=== PATIENT | male | born 1950 | race Caucasian/White ===

== ENCOUNTER 2025-07-26 08:04 | Outpatient (AMB) | payer OTHER, SELFPAY ==
--- NOTE | 2025-07-26 08:14 | MHC.OFFVIS ---
Vital Signs 07/26/25 08:16 Height 5 ft 9 in Weight 158 lb 2 oz BMI 23.3 BP 130/72 Blood Pressure Location Rt brachial Position Sitting Pulse 68 Pulse Source Pulse Oximeter Pulse Oximetry (%) 98 Oxygen Delivery Method Room Air Intake Visit Reasons: ENP - Tremors Intake Note: Tremors Early Childhood Aide Classroom Required: No Accompanied by: Self / Same As Patient Allergies No Known Allergies Allergy (Verified 07/26/25 08:14) Medication List - Last Reconciled 07/26/25 by Radha Reynolds MD acetaminophen 500 mg PO Q6H PRN carbidopa-levodopa 25-100 mg (Sinemet) 1 tab PO QID docusate sodium (Colace) 100 mg PO BID ibuprofen 600 mg PO TID lorazepam 2 mg (2 x 1 mg) PO BEDTIME 30 days rasagiline (Azilect) 1 mg PO DAILY HPI Comments Details: 75y/o Right handed male comes for further management of Parkinsons disease. ABout 5 years ago he started noticing tremors in his right hand which progressively worsened. He also developed shoulder stiffness on the right and had surgery . He was diagnosed by in 2020 . He is on carbidopa/levodopa 25/100 4-5 times a day Rasagiline 1mg qd and Carbidopa/levodopa ER 50/200 bid ( does not take it regularly ) , lorazepam he is doing good . He exercises regularly. Memory-good SLeep-OK, mild RBD , has vivid dreams Mood- anxiety, mild Motivated SPeech- mild low volume ,mild drooling Hand writing - smaller Using utensils- slower Personal hygiene- slower SHower- good Gait-good No falls Bowel movements- constipated Bladder- normal , stewart sh/o prostrate ca and has some leaking No hallucinations Head injury- industrial accident -2002, lost consiousness briefly Exposure to chemicals - got involved in a felony for cannabis conspiracy , went to a [facility] 2007 and 2008 and was working in a farm spraying chemicals. He is involved in a class action . [facility] Medical History (Updated 07/26/25 @ 08:51 by Radha Reynolds MD) Parkinson's disease without dyskinesia Tremor Elevated PSA Hydronephrosis Nephrolithiasis Hyperlipidemia Depression Anxiety Social History Patient Tobacco Use Status: Never used Tobacco Physical Exam Vital Signs: Last Vital Signs Pulse 68 07/26/25 08:16 BP 130/72 07/26/25 08:16 Pulse Ox 98 07/26/25 08:16 Oxygen Delivery Method Room Air 07/26/25 08:16 BMI result Body Mass Index 23.3 Const General: cooperative, healthy appearing and no acute distress Nutritional Appearance: average body habitus Orientation/consciousness: patient oriented x3 HEENT Head: Yes normal to inspection Neck Other: mild antecollis and restricted range of motion Neuro Other: Mild decreased blink and facial expression mild lower lip tremors, tongue tremors , slow tongue movements Voice- normal Right UE low amplitude rest tremors FineFinger movements - mildlydecreased yaya l>R Alternating hand movements - decreased yaya Hand movements - decreased yaya Foot taps- decreased yaya 1+ cog wheel rigidity R>L gait - mild stooped, mild slowness and decreased arm swing R>L General: patient oriented x3 and no focal motor deficits Cranial nerves: Yes CN's II-XII intact bilaterally, Yes Bilaterally intact EOM present, Yes Normal facial strength present and Yes Midline tongue present Cognition (Neuro): normal cognition Motor exam (neuro): 5/5 motor strength present throughout Deep tendon reflexes (DTR's): Right triceps reflex intensity grade: 1+, Left triceps reflex intensity grade: 1+, Rt Biceps (C5, C6): 1+, Left biceps reflex intensity grade: 1+, Right brachioradialis reflex intensity grade: 1+, Left brachioradialis reflex intensity grade: 1+, Right patellar reflex intensity grade: 1+ and Left patellar reflex intensity grade: 1+ Coordination: harzaf-gh-wokd test normal Assessment & Plan Assessment & Plan (1) Parkinson's disease without dyskinesia: Code(s): G20.A1 - Parkinson's disease without dyskinesia, without mention of fluctuations Category: Medical Qualifiers: Fluctuating manifestations: without fluctuating manifestations Qualified Code(s): G20.A1 - Parkinson's disease without dyskinesia, without mention of fluctuations Plan Continue sinemet 25/100 1 tab 5 times a day MRI brain Rasagiline 1mg qd PWR PT Hold sinemet Cr for now Orders: Orders MR head/brain wo con Today G20.A1 - Parkinson's disease without dyskinesia, without mention of fluctuations PWR Program Eval and Treat Today G20.A1 - Parkinson's disease without dyskinesia, without mention of fluctuations Medications: New carbidopa-levodopa 25-100 mg (Sinemet) 1 tab PO .5 times a day 150 tabs 6RF rasagiline (Azilect) 1 mg PO DAILY 30 tabs 6RF Changed From lorazepam 1.5 mg (1.5 x 1 mg) PO BEDTIME 30 days 45 tabs 2RF To lorazepam 2 mg (2 x 1 mg) PO BEDTIME 60 tabs 2RF 30 days Coding Level of Care Code New Pt Level 4 (35562) Complex EM visit Add On G2211 Diagnoses Parkinson's disease without dyskinesia or fluctuating manifestations G20.A1 Fluctuating manifestations: without fluctuating manifestations
[2025-07-26 08:16] VITALS: BP 130/72; PULSE 68; O2SAT 98; BMI 23.3
--- OUTSIDE RECORDS SUMMARY | 2025-07-26 08:18 | XMS_ITS ---
Author Name [facility] Organization Unknown Care Team Organization Name Specialty Phone Email Start Date End [place] VIRAJ CONNORS Primary Care 09/29/2022 07/10/20 24
== END 2025-07-26 09:03 | disposition home or self-care (01) ==
PROVIDERS: PCP Internal Medicine; Visit Provider Psychiatry & Neurology Neurology
DX: G20.A1 Parkinson's disease without dyskinesia, without mention of fluctuations (principal)
CPT/HCPCS: 99204; G2211

== ENCOUNTER 2025-08-10 07:22 | Outpatient (REF) | payer MEDICARE, SELFPAY ==
--- NOTE | ~2025-08-10 | MR_ITS ---
EXAMINATION: MR BRAIN WITHOUT CONTRAST CLINICAL INFORMATION: Parkinson's disease without dyskinesia. Patient states episodic dizziness and decreased vision. COMPARISON: None available. TECHNIQUE: MRI of the brain was obtained using routine sequences without contrast. Examination performed on 1.5 [employer] Siemens high-field unit. FINDINGS: There is no diffusion restriction. There is no intracranial hemorrhage, acute infarction, mass effect, or edema. Ventricles, sulci, and cisterns are normal in size and configuration for patient age. No abnormal patterns of atrophy. No shift of midline. There is a solitary focus of punctate hemosiderin deposition in the left high frontal white matter. This is nonspecific and may represent sequela of a prior microhemorrhage or a tiny cavernous malformation. No additional abnormal foci of hemosiderin deposition present. There are no significant white matter signal abnormalities identified. Midline structures appear normally formed. The pituitary gland appears normal. Posterior fossa structures appear normal. Cerebellar tonsils are appropriately located. Major flow voids are preserved within the skull base. The globes and orbital contents demonstrate no abnormalities. Paranasal sinuses demonstrate a mucous retention cyst in the dependent left maxillary antrum. Paranasal sinuses are otherwise clear bilaterally. The mastoids and tympanic cavities are normally aerated. Extracranial soft tissues demonstrate no abnormalities. No suspicious bone marrow changes are evident. There are degenerative changes in the left greater than right TM joints. Atlantoaxial joint is intact with mild degenerative changes. MR/MR head/brain wo con IMPRESSION: 1. No evidence of intracranial hemorrhage, acute infarction, mass effect, or edema. Essentially normal MRI brain for age. 2. Ancillary findings as discussed. Electronically signed by: Cecilio Gerard MD 08/10/2025 08:38 AM EDT
--- OUTSIDE RECORDS SUMMARY | 2025-08-10 07:26 | XMS_ITS | Clinical Summary ---
Author Organization [facility] Address [address] [place] [address] Phone Care Team Providers Care Supervisor Powdered Sugar Name Role Phone Brijesh Daley MD Primary Care Provider [phone] Allergies No known active allergies Medications acetaminophen (TYLENOL) 500 mg capsule Take 2 capsules (1,000 mg total) by mouth every 8 (eight) hours if needed for mild pain, moderate pain, fever - temperature GREATER than 38 C (100.4 F) or headaches. 4 Active carbidopa-levod opa CR (SINEMET CR) 25-100 mg per CR tablet Take 1 tablet by mouth 4 (four) times a day. Active LORazepam (ATIVAN) 0.5 mg tablet Take 2 tablets (1 mg total) by mouth at bedtime. Active rasagiline (AZILECT) 1 mg tablet Take 1 tablet (1 mg total) by mouth 1 (one) time each day. Active ibuprofen (ADVIL,MOTRIN) 600 mg tablet Take 1 tablet (600 mg total) by mouth 3 (three) times a day. 4 Active docusate sodium (COLACE) 100 mg capsule Take 1 capsule (100 mg total) by mouth 2 (two) times a day. Active Active Problems Problem Noted Date Diagnosed Date PSA elevation 01/27/2019 Anxiety 09/08/2018 Depression 09/08/2018 Hyperlipidemia 06/10/2016 Nephrolithiasis 02/01/2013 Overview (11/17/2024): hydronephrosis Tremor 01/02/2013 Surgical History Surgery Date Site/Laterality Comments SHOULDER SURGERY PROCEDURE: HISTORICAL SHOULDER SURGERY; COMMENT: RTC repair LEG SURGERY PROCEDURE: HISTORICAL LEG SURGERY; COMMENT: repair for fracture KIDNEY STONE SURGERY Left PROSTATE SURGERY Medical History Medical History Date Comments Hyperlipidemia 06/10/2016 DX:Hyperlipidemi a Nephrolithiasis 02/01/2013 DX:Nephrolithias is; COMMENT: hydronephrosis Tremor 01/02/2013 DX:Tremor Depression 09/08/2018 DX:Depression Anxiety 09/08/2018 DX:Anxiety Parkinson disease ([facility] V 24, [facility] V28) Cancer ([facility] V24, [facility] V28) Prostate cancer ([facility] V24 , [facility] V28) Social History Tobacco Use Types Packs/Day Years Used Date Smoking Tobacco: Never Alcohol Use Standard Drinks/Week Comments Never 0 (1 standard drink = 0.6 oz pur e alcohol) Interpersonal Safety Answer Date Record ed Physical Abuse 12/08/2024 Verbal Abuse 12/08/2024 Sex and Gender Information Value Date Recorded Sex Assigned at Male 12/08/2024 7:12 AM EST Legal Sex Male 1:09 AM EST Gender Identity Male 12/08/2024 7:12 AM EST Sexual Orientation Straight 12/08/2024 7: 12 AM EST Obstetrics History Last Filed Vital Signs Vital Sign Reading Time Taken Comments Blood Pressure 119/74 12/08/2024 10:04 AM EST Pulse 66 12/08/2024 10:04 AM EST Temperature 36.6 C (97.9 F) 12/08/2024 7:32 AM EST Respiratory Rate 12 12/08/2024 9:45 AM EST Oxygen Saturation 98% 12/08/2024 10:04 AM EST Inhaled Oxygen Concentration - - Weight 72.6 kg (160 lb) 11/29/2024 12:00 PM EST Height 177.8 cm (5' 10 ) 01/26/2024 1:03 PM EST Body Mass Index 22.96 01/26/2024 1:03 PM EST Plan of Treatment Health Maintenance Due Date Last Done Comments COVID-19 Vaccine (#1) 1955 DTaP,Tdap,and Td Vaccines (1 - Tdap) 1970 Zoster Vaccines (1 of 2) 1970 Pneumococcal Vaccine: 50+ Ye ars (1 of 1 - PCV) 2001 Cholesterol Screening (Lipid Panel) 10/25/2022 Colorectal Cancer Screening: Colonoscopy 10/25/2022 Hepatitis C Screening 10/25/2022 Medicare Annual Wellness Visit 10/25/2022 Social Influencers of Health Screening 10/25/2022 Depression Screening 11/22/2024 Influenza Vaccine (#1) 2025 11/20/2019 Falls Risk Assessment 12/08/2025 12/08/2024 RSV Immunization Adult Patie nts (1 - 1-dose 75+ series) 2026 HIB Vaccines Aged Out No longer eligi ble based on patient's age to complete this topic HPV Vaccines Aged Out No longer eligi ble based on patient's age to complete this topic Hepatitis A Vaccines Aged Out No long er eligible based on patient's age to complete this topic Hepatitis B Vaccines Aged Out No long er eligible based on patient's age to complete this topic IPV Vaccines Aged Out No longer eligi ble based on patient's age to complete this topic MMR Vaccines Aged Out No longer eligi ble based on patient's age to complete this topic Meningococcal ACWY Vaccine Aged Out N o longer eligible based on patient's age to complete this topic Meningococcal B Vaccine Aged Out No l onger eligible based on patient's age to complete this topic RSV Immunization Patients Un michael 20 months Aged Out No longer eligible b ased on patient's age to complete this topic Varicella Vaccines Aged Out No longer eligible based on patient's age to complete this topic Medical Devices Implanted Type Area Powerhouse Oiler Device Identifier Shelf Expiration Date Model / Serial / Lot Pins Right: Shoulder Insurance [employer] MEDICARE ADVANTAGE Care Teams Supervisor Powdered Sugar Relationship Specialty Start Date End Date Brijesh Daley MD [address] [place] [address] PCP - General Internal Medicine 10/10/18
== END 2025-08-10 07:23 | disposition home or self-care (01) ==
LOC: HO.MRI 07:22
PROVIDERS: PCP Internal Medicine; Visit Provider Psychiatry & Neurology Neurology
DX: G20.A1 Parkinson's disease without dyskinesia, without mention of fluctuations (principal)
CPT/HCPCS: 70551

== ENCOUNTER → 2025-08-10 07:32 | Outpatient (BNV) | payer MEDICARE, SELFPAY | PROVIDERS: PCP Internal Medicine; Visit Provider Radiology Diagnostic Radiology | DX: G20.A1 Parkinson's disease without dyskinesia, without mention of fluctuations (principal) | CPT/HCPCS: 70551 ==

== ENCOUNTER 2025-10-02 09:43 | Outpatient (REF) | payer MEDICARE, SELFPAY ==
--- OUTSIDE RECORDS SUMMARY | 2025-10-02 11:00 | XMS_ITS | Clinical Summary ---
Author Organization [facility] Address [address] [place] [address] Phone Care Team Providers Care Minister Assistant Name Role Phone Brijesh Daley MD Primary Care Provider [phone] Allergies No known active allergies Medications acetaminophen [...] 09/08/2018 DX:Depression Anxiety 09/08/2018 DX:Anxiety Parkinson disease ([facility] V 24, [facility] [place]28) Cancer [place] [place], [facility] V28) Prostate cancer [place] [place] , [facility] V28) Social History Tobacco Use Types Packs/Day Years Used Date Smoking Tobacco: Never Alcohol Use Standard Drinks/Week Comments Never 0 (1 standard drink = 0.6 oz pur e alcohol) Interpersonal Safety Answer Date Record ed Physical Abuse Unrecognized value 12/08/2024 Verbal Abuse Unrecognized value 12/08/2024 Sex and Gender Information Value Date [...] Health Maintenance Due Date Last Done Comments Colorectal Cancer Screening: Colonoscopy 1951 COVID-19 Vaccine (#1) 1955 DTaP,Tdap,and Td Vaccines (1 - Tdap) 1970 Zoster Vaccines (1 of 2) 1970 Pneumococcal Vaccine: 50+ Ye ars (1 of 1 - PCV) 2001 Cholesterol Screening (Lipid Panel) 10/25/2022 Hepatitis C Screening 10/25/2022 Medicare Annual [...] this topic Medical Devices Implanted Type Area Proof Machine Operator Supervisor Device Identifier Shelf Expiration Date Model / Serial / Lot Pins Right: Shoulder Insurance [employer] MEDICARE ADVANTAGE Care Teams Minister Assistant Relationship Specialty Start Date End Date Brijesh Daley MD [address] [place] [address] PCP - General Internal Medicine 10/10/18
[2025-10-02 12:56] LABS: MANUAL DIFF FLAG NO
[2025-10-02 13:08] LABS: Hematocrit 43.5 % (42.0-52.0); Hemoglobin 13.7 g/dl (14.0-18.0); Imm Gran Abs Auto 0.03 X10*3/uL (0.00-0.03); Imm Gran Pct Auto 0.4 % (0.0-0.4); Lymphocytes Absolute Auto 1.6 X10*3/uL (1.2-4.9); Mean Corpuscular HGB Conc 31.5 g/dl (31.0-36.0); Mean Corpuscular Hemoglobin 27.6 pg (27.0-33.0); Mean Corpuscular Volume 87.7 fL (80.0-98.0); NRBC Abs Auto 0.000 X10*3/uL (0.0-0.012); NRBC Pct Auto 0.0 /100WBC (0.0-0.2); Platelet Count 397 X10*3/uL (160-400); Red Blood Count 4.96 X10*6/uL (4.60-5.80); White Blood Count 6.9 X10*3/uL (4.8-10.8)
[2025-10-02 13:42] LABS: Alanine Aminotransferase 9 U/L (0-40); Albumin Level 4.4 g/dL (3.5-5.0); Alkaline Phosphatase 82 U/L (39-117); Anion Gap 13 (12-20); Aspartate Amino Transferase 35 U/L (5-37); Blood Urea Nitrogen 24 mg/dL (9-16); Calcium 9.7 mg/dL (8.4-10.2); Carbon Dioxide 29 mmol/L (22-29); Chloride 100 mmol/L (96-108); Estimated Glomerular Filt Rate > 60; Potassium 4.7 mmol/L (3.3-5.1); Sodium 137 mmol/L (135-145); Total Protein 8.3 g/dL (6.5-8.0)
[2025-10-02 13:50] LABS: Ferritin 34 ng/mL (20-250)
[2025-10-02 14:04] LABS: Folate 9.4 ng/mL (> or = 4.0); Vitamin B12 459 pg/mL (200-900)
[2025-10-05 11:59] LABS: Vitamin D 25-OH, D2 <4 ng/mL; Vitamin D 25-OH, D3 38 ng/mL; Vitamin D 25-OH, Total 38 ng/mL (30-100)
== END 2025-10-02 09:44 | disposition home or self-care (01) ==
LOC: HO.HKASLDS 09:43
PROVIDERS: PCP Internal Medicine; Visit Provider Psychiatry & Neurology Neurology
DX: G20.A1 Parkinson's disease without dyskinesia, without mention of fluctuations (principal); Z13.29 Encounter for screening for other suspected endocrine disorder; Z13.21 Encounter for screening for nutritional disorder
CPT/HCPCS: 36415; 80053; 82306; 82607; 82728; 82746; 84443; 85025

== ENCOUNTER 2025-11-20 10:17 | Outpatient (RCR) | payer MEDICARE, SELFPAY ==
--- NOTE | 2025-09-11 13:50 | MHC.OT.EP ---
[facility] Office [address] [phone] F: [phone] F: [phone] Occupational Therapy Plan of Care Patient Name: Regulo Camara Date of Evaluation: 09/11/25 Diagnosis: Parkinsons Disease Pain Location: None reported Assessment: Pt is a 75 y/o right hand dominant male referred to OT with Parkinsons disease without dyskinesia. Pt reports about 5 years ago he started noticing tremors in his right hand which progressively worsened. He was diagnosed with PD by Dr. Garcia in 2020. Currently on carbidopa/levodopa 25/100 4-5 times a day and Rasagiline; doing well and exercising regularly. No history of falls. Minor tremoring noted. He is somewhat concerned with memory decline and is motivated to slow progression of the disease and improve strength/flexibility/coordination. Pt currently attends community exercises groups 2x/wk and would benefit from skilled OT with focus on PWR! program to improve posture, gait, flexibility, and enhance coordination and cognition. Pt is very motivated an in agreement with plan. Frequency and Duration: The patient will be seen 1x/wk for 6 weeks Short Term Goals: 1) Complete PWR! moves during mat-based and standing activities with good form and minimal loss of balance to support functional mobility 2) Perform challenging balance activities (single-leg stance variations, dynamic reaching, directional stepping) with contact guard assistance to build confidence and reduce fall risk Longterm Goals: 1) Maintain optimal upright posture during dynamic activities for at least 25 minutes with improved endurance and no complaints of fatigue 2) Independently apply PWR! strategies during daily transitions and mobility tasks to maximize movement amplitude and ease 3) Report increased confidence in movement quality and ability to manage symptoms as evidenced by 25% improvement on self-reported outcome measure Treatment Plan: Therapeutic Exercise Therapeutic Activity Home Exercise Program Neuro Re-ed Patient Education Other (see comments) PWR! Program Electronically Signed By: Lila Phan MS OTR/L Please Sign and return to therapist. Thank you once again for your referral.
== END 2025-11-21 08:12 | disposition home or self-care (01) ==
LOC: HO.OTS 10:17
PROVIDERS: PCP Internal Medicine; Visit Provider Psychiatry & Neurology Neurology
DX: G20.A1 Parkinson's disease without dyskinesia, without mention of fluctuations (principal)
CPT/HCPCS: 97110; 97112; 97165